=== PATIENT | female | born 1990 | race Two or more races ===

== ENCOUNTER → 2025-05-10 | Emergency (ER) | payer OTHER ==
[~2025-05-10] VITALS: Ht 165.1 cm; Wt 76.2 kg
[2025-05-10 12:16] VITALS: BP 137/91; O2SAT 99
== END | disposition left against medical advice (07) ==
LOC: ER 10:38
DX: Z53.20 Procedure and treatment not carried out because of patient's decision for unspecified reasons (principal); J06.9 Acute upper respiratory infection, unspecified; Z88.6 Allergy status to analgesic agent